=== PATIENT | male | born 1960 | race Caucasian/White ===

== ENCOUNTER 2024-12-24 07:15 | Day surgery (SDC) | payer BC, MEDICARE ==
[2024-12-24] MEDS ORDERED: fentaNYL 100 MCG/2 ML SDV IV ONE (07:16)
[2024-12-24] MEDS ORDERED: Propofol 200 MG/20 ML SDV IV ONE (07:16)
[2024-12-24] MEDS ORDERED: Midazolam 1 MG/ML 2 ML SDV IV ONE (07:16)
[2024-12-24] MEDS: Lactated Ringers 1,000 ML IV SCH (08:00)
[2024-12-24 09:48] VITALS: BP 110/75; PULSE 59
== END 2024-12-24 09:50 | disposition home or self-care (01) ==
LOC: FB.SDS 07:15
PROVIDERS: ATTEND Surgery
DX: Z12.11 Encounter for screening for malignant neoplasm of colon (principal); K57.30 Diverticulosis of large intestine without perforation or abscess without bleeding; K64.4 Residual hemorrhoidal skin tags; K21.9 Gastro-esophageal reflux disease without esophagitis; Z88.5 Allergy status to narcotic agent; Z87.891 Personal history of nicotine dependence; Z86.0101 Personal history of adenomatous and serrated colon polyps; Z79.899 Other long term (current) drug therapy
CPT/HCPCS: 00811; A9270-GY; J2250; J2704; J3010; J7120